=== PATIENT | male | born 1970 | race Two or more races ===

== ENCOUNTER 2018-09-07 15:43 | Emergency (ER) | payer BC, OTHER ==
[~2018-09-07] VITALS: Ht 180.3 cm; Wt 91.2 kg
--- NOTE | 2018-09-07 16:10 | NUR ---
ED Nurse Note: Patient walked in c/o dysuria x 4 days post circumcision procedure on 08/27/2018. Pt rates pain at 11/27.
[2018-09-07 16:11] VITALS: BP 123/82
--- NOTE | 2018-09-07 16:50 | NUR ---
ED Nurse Note: Urine specimen sent to lab
[2018-09-07 18:03] LABS: APPEARANCE,URINE CLEAR; BILIRUBIN, URINE NEGATIVE (NEGATIVE); COLOR,URINE PALE YELLOW; GLUCOSE, URINE (UA) NEGATIVE (NEGATIVE); KETONES,URINE NEGATIVE (NEGATIVE); LEUKOCYTE ESTERASE ,URINE NEGATIVE (NEGATIVE); NITRITE,URINE NEGATIVE (NEGATIVE); PH,URINE 6 (4.5-8.0); PROTEIN,URINE NEGATIVE (NEGATIVE); UROBILINOGEN,URINE NORMAL MG/DL (0.0-1.0)
[2018-09-07] MEDS ORDERED: Cephalexin 500mg cap ORAL ONE (18:15)
--- NOTE | 2018-09-07 18:20 | Emergency Room Report ---
History of Present Illness General Chief Complaint: Male Urogenital Problems Source: Patient (Elena Faustin) Present Illness HPI 48-year-old male presents to the emergency department complaining of 4 out of 10 in severity dysuria and external penile tenderness 4 days. Patient reports that he had circumcision procedure performed 11 days ago and initially did not have symptoms that he is currently experiencing. Patient also reports area externally of swelling/blistering along the edge of the glans. Patient reports that some of the sutures have dissolved however some remain and are uncomfortable. Patient denies hematuria. He reports that he has pain at the beginning of urination he describes having sensation to urinate however he is experiencing hesitancy pain. pt. denies testicular pain or swelling. denies abdominal pain or tenderness. Denies penile d/c or swollen tender lymph nodes. pt. reports daily application of abx ointment. he states he finished his course of abx several days ago prior to onset of his symptoms. Denies fevers ro chills. Pt. reports surgery was performed due to recurrent UTI secondary to phimosis. (Elena Faustin) Allergies: Coded Allergies: No Known Allergies (Unverified , 09/07/18) Patient History Past Medical History: see triage record Past Surgical History: none Pertinent Family History: none Immunizations: UTD Reviewed Nursing Documentation: PMH: Agreed; PSxH: Agreed (Elena Faustin) Nursing Documentation-PMH Past Medical History: No Stated History (Elena Faustin) Review of Systems All Other Systems: negative except mentioned in HPI (Elena Faustin) Physical Exam Vital Signs Date Time Temp Pulse Resp B/P (MAP) Pulse Ox O2 Delivery O2 Flow Rate FiO2 09/07/18 16:01 99.7 93 18 123/82 96 Room Air Sp02 EP Interpretation: reviewed, normal General Appearance: no apparent distress, alert, GCS 15, non-toxic Head: normocephalic, atraumatic Eyes: bilateral eye normal inspection, bilateral eye PERRL ENT: hearing grossly normal, normal voice Neck: full range of motion Respiratory: lungs clear, normal breath sounds, speaking full sentences Cardiovascular #1: regular rate, rhythm Gastrointestinal: non tender, soft, non-distended Rectal: deferred Genitourinary: normal inspection, no CVA tenderness, scrotum normal, other - swelling to the glans and distal penile shaft, several sutures noted, two bullae on the lateral aspect of the distal shaft near approximation area bilaterally, Left >right. no pus noted, no rash, no vesicles or ulcers. no d/c noted Musculoskeletal: back normal, gait/station normal, normal range of motion, non- tender Neurologic: alert, oriented x3, responsive, motor strength/tone normal, sensory intact, normal gait, speech normal, grossly normal Psychiatric: judgement/insight normal Skin: normal color, no rash, warm/dry, well hydrated Lymphatic: no adenopathy (Elena Faustin) Medical Decision Making PA Attestation Dr. Llamas is my supervising Physician whom patient management has been discussed with. (Elena Faustin) Diagnostic Impression: Primary Impression: Post op infection Qualified Codes: T81.4XXA - Infection following a procedure, initial encounter ER Course 48-year-old male presents to the emergency department complaining of 4 out of 10 in severity dysuria and external penile tenderness 4 days. Patient reports that he had circumcision procedure performed 11 days ago and initially did not have symptoms that he is currently experiencing. Patient also reports area externally of swelling/blistering along the edge of the glans. Patient reports that some of the sutures have dissolved however some remain and are uncomfortable. Patient denies hematuria. He reports that he has pain at the beginning of urination he describes having sensation to urinate however he is experiencing hesitancy pain. pt. denies testicular pain or swelling. denies abdominal pain or tenderness. Denies penile d/c or swollen tender lymph nodes. pt. reports daily application of abx ointment. he states he finished his course of abx several days ago prior to onset of his symptoms. Denies fevers ro chills. Pt. reports surgery was performed due to recurrent UTI secondary to phimosis. Ddx considered but are not limited to UTi , Urethritis, LGV, STI, Stone, Cystitis, prostatitis, Surgical site infection, abscess, cellulitis just to name a few. Delivery Technician for PE was: Dr. Llamas Vital signs: are WNL, pt. is afebrile H&PE are most consistent with post operative complication/infection-mild and suitable for outpatient tx. ORDERS: - UA : Unremarkable ED INTERVENTIONS: -Keflex 500mg PO DISCHARGE: At this time pt. is stable for d/c to home. Will provide printed patient care instructions, and any necessary prescriptions. Care plan and follow up instructions have been discussed with the patient prior to discharge. Labs Test 09/07/18 17:15 Urine Color Pale yellow Urine Appearance Clear Urine pH 6 (4.5-8.0) Urine Specific [place] 1.015 (1.005-1.035) Urine Protein Negative (NEGATIVE) Urine Glucose (UA) Negative (NEGATIVE) Urine Ketones Negative (NEGATIVE) Urine Blood Negative (NEGATIVE) Urine Nitrite Negative (NEGATIVE) Urine Bilirubin Negative (NEGATIVE) Urine Urobilinogen Normal MG/DL (0.0-1.0) Urine Leukocyte Esterase Negative (NEGATIVE) (Elnea Faustin) ER Course Please see above note. Patient examined by me. I agree with treatment plan. (Gregorio Llamas MD) Last Vital Signs Date Time Temp Pulse Resp B/P (MAP) Pulse Ox O2 Delivery O2 Flow Rate FiO2 09/07/18 16:11 99.7 93 18 123/82 96 Room Air (Elena Faustin) Disposition: HOME, SELF-CARE Condition: Stable Scripts Cephalexin* (KEFLEX*) 500 Mg Capsule 500 MG ORAL EVERY 12 HOURS for 7 Days, #14 CAP 0 Refills Prov: Elena Faustin 09/07/18 Ibuprofen* (MOTRIN*) 600 Mg Tablet 600 MG ORAL THREE TIMES A DAY, #30 TAB 0 Refills Prov: Elena Faustin 09/07/18 Referrals: [facility]ERR[facility] (PCP) Patient Instructions: Wound Infection, [id number] Additional Instructions: Take medications as directed . Follow up with a Primary Care Provider in 3-5 days, even if your symptoms have resolved. --Please review list of primary care clinics, if you do not already have a primary care provider Return sooner to ED if new symptoms occur, or current symptoms become worse. - Please note that this Emergency Department Report was dictated using [id number] base trimmer technology software, occasionally this can lead to erroneous entry secondary to interpretation by the dictation equipment. Elena Faustin Sep 07, 2018 18:20 Gregorio Llamas MD Sep 08, 2018 03:51
[2018-09-07] MEDS ORDERED: CEPHALEXIN500 MG ORAL (18:21)
[2018-09-07] MEDS ORDERED: IBUPROFEN600 MG ORAL (18:21)
[2018-09-07 18:46] VITALS: BP 123/82
--- NOTE | 2018-09-07 18:47 | NUR ---
ED Nurse Note: pt was cleared for discharge by brody. prescription and discharge instruction explained. pt is aox 4, pt able to verbalize understanding. id band removed. pt able to walk with steady gait. pt left with all belongings.
== END 2018-09-07 18:46 | disposition home or self-care (01) ==
LOC: EMR 16:39
DX: T81.40XA Infection following a procedure, unspecified, initial encounter (principal); B99.9 Unspecified infectious disease; Y83.8 Other surgical procedures as the cause of abnormal reaction of the patient, or of later complication, without mention of misadventure at the time of the procedure; Y92.89 Other specified places as the place of occurrence of the external cause
CPT/HCPCS: 81003; 99283